=== PATIENT | male | born 1960 | race Caucasian/White ===

== ENCOUNTER → 2023-10-08 11:17 | Outpatient (REF) | payer BC, SELFPAY ==
[2023-10-08 12:23] LABS: % Basophils 0.6 % (0-2); % Eosinophils 3.3 % (0-6); % Immature Granulocytes 0.2 % (0-0.5); % Lymphocytes 23.6 % (20.5-51.1); % Monocytes 8.6 % (1.7-9.3); % Neutrophils 63.7 % (42.2-75.2); Absolute Eosinophils 0.2 10^3/uL (0-0.7); Absolute Lymphocytes 1.5 10^3/uL (1.2-3.4); Absolute Monocytes 0.5 10^3/uL (0.1-0.6); Hematocrit 42.8 % (39.0-52.0); Hemoglobin 15.2 g/dL (13.0-18.0); Mean Corp Hgb Conc. 35.5 g/dL (33.0-37.0); Mean Corpuscular Hgb 31.8 pg (27.0-31.0); Mean Corpuscular Volume 89.5 fL (80.0-94.0); Mean Platelet Volume 9.1 fL (7.4-10.4); Nucleated Red Blood Cells % 0 % (-); Platelet Count 212 10^3/uL (130-400); Red Blood Cell Count 4.78 10^6/uL (4.70-6.10); Red Cell Dist. Width 12.9 % (11.5-14.5); Reticulocyte Count 1.6 % (0.4-2.8); White Blood Cell Count 6.3 10^3/uL (4.8-10.8)
[2023-10-08 12:24] LABS: Urine Albumin Negative (Neg - Trace); Urine Bilirubin Negative (Negative); Urine Character Clear (Clear); Urine Color Yellow; Urine Glucose Negative (Negative); Urine Ketone Negative (Negative); Urine Leukocyte Trace (Negative); Urine Nitrite Negative (Negative); Urine Occult Blood Negative (Negative); Urine Specific Gravity 1.005 (<1.030); Urine Urobilinogen Negative (Neg - 1+); Urine pH 6.5 (5.0-9.0)
[2023-10-08 12:45] LABS: ALT (SGPT) 81 U/L (0-50); AST (SGOT) 72 U/L (17-59); Albumin 4.5 g/dl (3.5-5.0); Alkaline Phosphatase 72 U/L (38-126); Amylase 82 U/L (30-110); Blood Urea Nitrogen 13 mg/dl (9-20); Calcium 9.1 mg/dl (8.4-10.2); Carbon Dioxide 24 mmol/L (22-30); Chloride 103 mmol/L (98-107); Creatine Phosphokinase 646 U/L (55-170); GGTP 36 U/L (15-73); Glucose 140 mg/dl (70-99); HDL Cholesterol 40 mg/dl; LDL Cholesterol, Calculated 47 mg/dl; Lipase 144 U/L (23-300); Magnesium 2.1 mg/dl (1.6-2.3); Potassium 4.4 mmol/L (3.5-5.1); Sodium 137 mmol/L (135-145); Total Bilirubin 0.9 mg/dl (0.2-1.3); Total Cholesterol 130 mg/dl (50-199); Total Protein 7.6 g/dl (6.3-8.2); Triglyceride 216 mg/dl (10-149); Uric Acid 6.1 mg/dl (3.5-8.5); Very Low Density Lipoprotein 43 mg/dl (0-30); eGFR > 60.00
[2023-10-08 12:47] LABS: Erythrocyte Sed Rate 11 mm/hour (0-20); NT-proBNP < 20.0 pg/ml
[2023-10-08 12:47] LABS: Iron 202 ug/dl (49-181)
[2023-10-08 12:56] LABS: Percent Saturation 58 % (20-50); Total Iron Binding Capacity 345 ug/dl (261-462)
[2023-10-08 13:03] LABS: Urine Red Blood Cell None Seen /HPF (0-2); Urine White Cell 0-2 /HPF (0-5)
[2023-10-08 17:35] LABS: C-Reactive Protein < 5.00 mg/L (0.0-10.00)
[2023-10-08 17:51] LABS: Vitamin D, 25-OH*** 35.4 ng/mL (30-80)
[2023-10-08 18:25] LABS: Vitamin B12 > 1000 pg/ml (239-931)
[2023-10-09 09:39] LABS: Glycohemoglobin (HgbA1c) 6.1 % (4.0-5.6)
[2023-10-09 15:50] LABS: Rheumatoid Agglutinin Less Than 10 IU (<10 IU)
[2023-10-11 07:49] LABS: Zinc 223.7 ug/dL (60.0-120.0)
== END ==
LOC: REG 11:17
PROVIDERS: ATTENDING PHYSICIAN Family Medicine
DX: E11.9 Type 2 diabetes mellitus without complications (principal); E78.5 Hyperlipidemia, unspecified; R94.5 Abnormal results of liver function studies; R94.8 Abnormal results of function studies of other organs and systems; E03.9 Hypothyroidism, unspecified; N39.0 Urinary tract infection, site not specified; E53.8 Deficiency of other specified B group vitamins; E61.1 Iron deficiency; Z12.5 Encounter for screening for malignant neoplasm of prostate; E60 Dietary zinc deficiency; E55.9 Vitamin D deficiency, unspecified; M12.9 Arthropathy, unspecified; I10 Essential (primary) hypertension; E83.42 Hypomagnesemia
CPT/HCPCS: 36415; 80053; 80061; 81003; 81015; 82150; 82306; 82550; 82607; 82728; 82977; 83036; 83540; 83550; 83690; 83735; 83880; 84550; 84630; 85025; 85045; 85652; 86140; 86430; G0103

== ENCOUNTER → 2023-11-05 11:21 | Outpatient (REF) | payer BC, SELFPAY ==
[2023-11-05 12:31] LABS: Urine Albumin Negative (Neg - Trace); Urine Bilirubin Negative (Negative); Urine Character Clear (Clear); Urine Color Yellow; Urine Glucose Negative (Negative); Urine Ketone Negative (Negative); Urine Leukocyte Negative (Negative); Urine Nitrite Negative (Negative); Urine Occult Blood Negative (Negative); Urine Urobilinogen Negative (Neg - 1+); Urine pH 6.5 (5.0-9.0)
[2023-11-05 12:50] LABS: ALT (SGPT) 77 U/L (0-50); AST (SGOT) 67 U/L (17-59); Albumin 4.8 g/dl (3.5-5.0); Alkaline Phosphatase 75 U/L (38-126); Amylase 82 U/L (30-110); Blood Urea Nitrogen 14 mg/dl (9-20); Calcium 9.4 mg/dl (8.4-10.2); Carbon Dioxide 29 mmol/L (22-30); Chloride 98 mmol/L (98-107); Creatine Phosphokinase 176 U/L (55-170); GGTP 44 U/L (15-73); Glucose 140 mg/dl (70-99); HDL Cholesterol 41 mg/dl; Iron 157 ug/dl (49-181); LDL Cholesterol, Calculated 125 mg/dl; Lipase 102 U/L (23-300); Magnesium 2.1 mg/dl (1.6-2.3); Potassium 4.6 mmol/L (3.5-5.1); Sodium 134 mmol/L (135-145); Total Bilirubin 0.8 mg/dl (0.2-1.3); Total Cholesterol 226 mg/dl (50-199); Total Protein 7.9 g/dl (6.3-8.2); Triglyceride 302 mg/dl (10-149); Uric Acid 5.1 mg/dl (3.5-8.5); Very Low Density Lipoprotein 60 mg/dl (0-30); eGFR > 60.00
[2023-11-05 12:53] LABS: % Basophils 0.6 % (0-2); % Immature Granulocytes 0.3 % (0-0.5); % Lymphocytes 17.9 % (20.5-51.1); % Monocytes 7.5 % (1.7-9.3); % Neutrophils 73.7 % (42.2-75.2); Absolute Lymphocytes 1.2 10^3/uL (1.2-3.4); Absolute Monocytes 0.5 10^3/uL (0.1-0.6); Absolute Neutrophils 4.7 10^3/uL (1.4-6.5); Hematocrit 45.1 % (39.0-52.0); Hemoglobin 15.9 g/dL (13.0-18.0); Mean Corp Hgb Conc. 35.3 g/dL (33.0-37.0); Mean Corpuscular Hgb 31.9 pg (27.0-31.0); Mean Corpuscular Volume 90.6 fL (80.0-94.0); Mean Platelet Volume 9.3 fL (7.4-10.4); Nucleated Red Blood Cells % 0 % (-); Platelet Count 256 10^3/uL (130-400); Red Blood Cell Count 4.98 10^6/uL (4.70-6.10); Red Cell Dist. Width 12.9 % (11.5-14.5); Reticulocyte Count 1.9 % (0.4-2.8); White Blood Cell Count 6.4 10^3/uL (4.8-10.8)
[2023-11-05 12:54] LABS: C-Reactive Protein < 5.00 mg/L (0.0-10.00)
[2023-11-05 13:00] LABS: Percent Saturation 44 % (20-50); Total Iron Binding Capacity 349 ug/dl (261-462)
[2023-11-05 13:12] LABS: Vitamin D, 25-OH*** 38.4 ng/mL (30-80)
[2023-11-05 13:21] LABS: Microalbumin, Random Urine 1.4 mg/dl (0.6-1.7)
[2023-11-05 13:26] LABS: TSH 1.94 uIU/ml (0.47-4.68)
[2023-11-05 13:39] LABS: Free T4 0.94 ng/dl (0.78-2.19)
[2023-11-05 14:08] LABS: Folate 4.5 ng/ml (2.76-20); Vitamin B12 961 pg/ml (239-931)
[2023-11-05 14:10] LABS: Glycohemoglobin (HgbA1c) 6.1 % (4.0-5.6)
[2023-11-05 14:38] LABS: Erythrocyte Sed Rate 16 mm/hour (0-20)
== END ==
LOC: REG 11:21
PROVIDERS: ATTENDING PHYSICIAN Family Medicine
DX: E11.9 Type 2 diabetes mellitus without complications (principal); E78.5 Hyperlipidemia, unspecified; R94.5 Abnormal results of liver function studies; R74.8 Abnormal levels of other serum enzymes; E03.9 Hypothyroidism, unspecified; M10.9 Gout, unspecified; E60 Dietary zinc deficiency; E55.9 Vitamin D deficiency, unspecified; M12.9 Arthropathy, unspecified; D64.9 Anemia, unspecified; E53.8 Deficiency of other specified B group vitamins; E61.1 Iron deficiency; E83.42 Hypomagnesemia; N39.0 Urinary tract infection, site not specified
CPT/HCPCS: 36415; 80053; 80061; 81003; 82043; 82150; 82306; 82550; 82570; 82607; 82728; 82746; 82977; 83036; 83540; 83550; 83690; 83735; 84439; 84443; 84550; 84630; 85025; 85045; 85652; 86140; 86430

== ENCOUNTER → 2024-06-29 10:42 | Outpatient (REF) | payer BC, SELFPAY ==
[2024-06-29 11:47] LABS: % Basophils 0.7 % (0-2); % Immature Granulocytes 0.2 % (0-0.5); % Lymphocytes 19.5 % (20.5-51.1); % Monocytes 8.2 % (1.7-9.3); % Neutrophils 71.4 % (42.2-75.2); Absolute Basophils 0.1 10^3/uL (0-0.2); Absolute Lymphocytes 1.6 10^3/uL (1.2-3.4); Absolute Monocytes 0.7 10^3/uL (0.1-0.6); Absolute Neutrophils 5.8 10^3/uL (1.4-6.5); Hematocrit 45.6 % (39.0-52.0); Hemoglobin 15.7 g/dL (13.0-18.0); Mean Corp Hgb Conc. 34.4 g/dL (33.0-37.0); Mean Corpuscular Hgb 31.2 pg (27.0-31.0); Mean Corpuscular Volume 90.5 fL (80.0-94.0); Mean Platelet Volume 9.1 fL (7.4-10.4); Nucleated Red Blood Cells % 0 % (-); Platelet Count 214 10^3/uL (130-400); Red Blood Cell Count 5.04 10^6/uL (4.70-6.10); Red Cell Dist. Width 13.2 % (11.5-14.5); White Blood Cell Count 8.2 10^3/uL (4.8-10.8)
[2024-06-29 12:07] LABS: NT-proBNP < 20.0 pg/ml
[2024-06-29 12:21] LABS: ALT (SGPT) 65 U/L (0-50); AST (SGOT) 43 U/L (17-59); Albumin 4.2 g/dl (3.5-5.0); Alkaline Phosphatase 71 U/L (38-126); Blood Urea Nitrogen 12 mg/dl (9-20); Calcium 9.2 mg/dl (8.4-10.2); Carbon Dioxide 23 mmol/L (22-30); Chloride 103 mmol/L (98-107); Glucose 146 mg/dl (70-99); HDL Cholesterol 49 mg/dl; LDL Cholesterol, Calculated 64 mg/dl; Magnesium 2.1 mg/dl (1.6-2.3); Potassium 4.4 mmol/L (3.5-5.1); Sodium 136 mmol/L (135-145); Total Bilirubin 0.7 mg/dl (0.2-1.3); Total Cholesterol 149 mg/dl (50-199); Total Protein 7.2 g/dl (6.3-8.2); Triglyceride 181 mg/dl (10-149); Very Low Density Lipoprotein 36 mg/dl (0-30); eGFR > 60.00
[2024-06-29 12:54] LABS: TSH 1.84 uIU/ml (0.47-4.68)
[2024-06-29 13:02] LABS: Glycohemoglobin (HgbA1c) 6.3 % (4.0-5.6)
== END ==
LOC: REG 10:42
PROVIDERS: ATTENDING PHYSICIAN Internal Medicine Cardiovascular Disease; FAMILY PHYSICIAN Family Medicine
DX: I10 Essential (primary) hypertension (principal); R73.01 Impaired fasting glucose; I49.9 Cardiac arrhythmia, unspecified; R00.2 Palpitations; E66.9 Obesity, unspecified; Z86.73 Personal history of transient ischemic attack (TIA), and cerebral infarction without residual deficits
CPT/HCPCS: 36415; 80053; 80061; 83036; 83735; 83880; 84443; 85025

== ENCOUNTER → 2025-01-18 11:08 | Outpatient (REF) | payer MEDICARE, BC, SELFPAY ==
[2025-01-18 12:56] LABS: Hematocrit 48.2 % (39.0-52.0); Hemoglobin 16.6 g/dL (13.0-18.0); Mean Corp Hgb Conc. 34.4 g/dL (33.0-37.0); Mean Corpuscular Volume 93.1 fL (80.0-94.0); Nucleated Red Blood Cells % 0 % (-); Platelet Count 212 10^3/uL (130-400); Red Cell Dist. Width 13.2 % (11.5-14.5)
[2025-01-18 13:30] LABS: ALT (SGPT) 105 U/L (0-50); AST (SGOT) 74 U/L (17-59); Albumin 4.6 g/dl (3.5-5.0); Alkaline Phosphatase 66 U/L (38-126); Blood Urea Nitrogen 12 mg/dl (9-20); Calcium 9.1 mg/dl (8.4-10.2); Carbon Dioxide 26 mmol/L (22-30); Chloride 102 mmol/L (98-107); Glucose 106 mg/dl (70-99); HDL Cholesterol 46 mg/dl; LDL Cholesterol, Calculated 53 mg/dl; Magnesium 2.2 mg/dl (1.6-2.3); Potassium 4.5 mmol/L (3.5-5.1); Sodium 138 mmol/L (135-145); Total Protein 7.8 g/dl (6.3-8.2); Very Low Density Lipoprotein 35 mg/dl (0-30); eGFR > 60.00
== END ==
LOC: REG 11:08
PROVIDERS: ATTENDING PHYSICIAN Nurse Practitioner; FAMILY PHYSICIAN Family Medicine
DX: I10 Essential (primary) hypertension (principal); R00.2 Palpitations; E66.9 Obesity, unspecified; Z86.73 Personal history of transient ischemic attack (TIA), and cerebral infarction without residual deficits
CPT/HCPCS: 36415; 80053; 80061; 83735; 83880; 85025

== ENCOUNTER 2025-03-15 13:30 | Emergency (ER) | payer MEDICARE, BC, SELFPAY ==
[2025-03-15 13:34] VITALS: BP 177/111
--- NOTE | 2025-03-15 14:56 | ED.SKININJ ---
HPI-Injury
General
Chief Complaint: Skin Problem
Source: patient
Exam Limitations: none
Time Seen by Provider: 03/15/25 14:37
Nursing documentation reviewed up to this point in time: agreed with
History of Present Illness-Injury
Is this injury a work related problem?: No
Is pt an associate of [facility]?: No
Initial Injury comments:
Patient to the emergency department for evaluation of a nonhealing wound to left lateral abdomen. States he noticed site approximately 1 week ago. Started as a small red bump. Since then site has opened and increased in size. He reports he is
cleaning it with peroxide and water, applying Neosporin ointment. He does not notice any improvement. He denies fever or chills. No history of known trauma. He denies pain at site. There is mild erythema at site. No prior history of same.
Brought to the emergency department accompanied by spouse for evaluation.
Past History
Past History
ED Past Medical History: Arrthythmia, CVA and HTN
ED Past Surgical History: Other (Hernia repair)
Social History
Tobacco: Non-smoker
Personal:
Review of Systems
Review of Systems
Allergies reviewed?: Yes
All Other Systems: ROS reviewed and negative except as documented in HPI and ROS
Constitutional: Reports no symptoms
EENT: Reports no symptoms
Respiratory: Reports no symptoms
Cardiac: Reports no symptoms
ABD/GI: Reports no symptoms
: Reports no symptoms
Musculoskeletal: Reports no symptoms
Skin: Reports other (1.5 cm superficial open wound to left lateral abdomen. Erythema at site. Minimal clear drainage.)
Neurological: Reports no symptoms
Psychiatric: Reports no symptoms
Phy Exam
General Physical Exam
General Presentation: well appearing and no apparent distress
General age: appears stated age
General Skin: warm and dry
General Habitus: normal
General Mental: alert
Musculoskeletal Exam
Musculoskeletal Exam: full ROM
Skin Exam
Skin Exam: other (1.5 cm superficial open wound to left lateral abdomen. Localized mild erythema to site. No swelling, no pain. Small amount of clear discharge noted. Wound culture obtained.)
Psychiatric Exam
Psychiatric Exam: normal mood/affect
Course
Orders/Labs/Results
Orders:
Orders
03/15/25 14:50
Doxycycline [Vibramycin] 100 mg PO NOW STA
Mupirocin [Bactroban 2% Ointment] 1 applic TOPICAL NOW STA
03/15/25 14:51
Wound Culture [Wound/Abscess/Other Culture] Urgent
JAREN Source: Abdomen
Specimen Description:
Vital Signs
Initial and Last Documented VS:
Initial Vital Signs
Temp Pulse Resp BP Pulse Ox
97.6 F 85 16 177/111 97
03/15/25 13:34 03/15/25 13:34 03/15/25 13:34 03/15/25 13:34 03/15/25 13:34
Last Documented Vital Signs
Temp Pulse Resp BP Pulse Ox
97.6 F 85 16 177/111 97
03/15/25 13:34 03/15/25 13:34 03/15/25 13:34 03/15/25 13:34 03/15/25 13:34
*Pulse Oximetry
SaO2: 97
Oxygen Mode of Delivery: Room air
Patient hypoxic: no
*Critical Care Note
Total Time (30-74mins, 75-104mins- exclusive of procedures): Not Applicable
Update Note
Update Note:
Patient to the emergency department for evaluation of a nonhealing wound to the left lateral abdomen. Wound measures approximately 1.5 cm, is oval in shape, superficial depth. There is mild localized erythema at site. Minimal clear discharge from
wound. Wound culture was obtained. There is no pain or swelling at site. No evidence of underlying abscess. He is currently using peroxide and Neosporin ointment to treat this wound. Recommend that he discontinue both the peroxide and the
Neosporin. He was instructed to cleanse wound 3 times daily with antibacterial soap and water, dry well, and then apply mupirocin ointment to site. Keep site covered. He was prescribed doxycycline 100 mg twice daily. Encouraged to use warm
compresses 4 times a day. Close follow-up with PCP. He was given instructions on signs and symptoms to return to the emergency department and he is agreeable to this plan.
ED Attending Note
-
Portions of this chart may have been created with voice recognition software.� Occasional wrong word or��sound alike� substitutions may have occurred due to the inherent limitations of voice recognition software.
Discharge Plan
Departure
Patient Disposition: Home (Routine Discharge)
Date of Disposition: 03/15/25
Time of Disposition: 14:52
Patient with high blood pressure during this ER visit?: No
Condition: Good
Covid-19: Not Applicable
Discharge Problem:
Cellulitis
Instructions: Wound Care (DC), Cellulitis (Skin Infection), Adult (DC)
Prescriptions:
New
doxycycline hyclate 100 mg capsule
100 mg PO BID Qty: 20 0RF
mupirocin 2 % ointment
1 applic topical TID Qty: 15 0RF
No Action
hydrocodone-acetaminophen [Vicodin] 1 EACH tablet
1 tab PO Q6HPRN PRN (Reason: finger pain) Qty: 5 0RF
Activity Restrictions/Additional Instructions:
Follow-up with your family doctor. Return to the emergency department immediately for fever/chills, increasing pain/redness/swelling/discharge to site, or for any further concerns. Wash site with antibacterial soap and water, dry well, before
applying antibacterial ointment.
Interventions
Interventions:
*Risk Screen - Suicide Last Done: 03/15/25 13:34
*ED COVID-19 Vaccine History Last Done: 03/15/25 13:34
*ED Influenza Vaccine History Last Done: 03/15/25 13:34
ED-Skin Assessment Last Done: 03/15/25 13:48
Discharge Date and Time
Print Language: MALIAN
[2025-03-15] MEDS: BACTROBAN NASAL 1 GRAM NASAL (15:39)
[2025-03-15] MEDS: VIBRAMYCIN 100 MG PO (15:39)
== END 2025-03-15 15:48 | disposition home or self-care (01) ==
LOC: EMR 13:30
PROVIDERS: EMERGENCY PHYSICIAN Student in an Organized Health Care Education/Training Program; FAMILY PHYSICIAN Family Medicine
DX: L03.311 Cellulitis of abdominal wall (principal); I10 Essential (primary) hypertension; Z86.73 Personal history of transient ischemic attack (TIA), and cerebral infarction without residual deficits
CPT/HCPCS: 99283; 87070; 87205